=== PATIENT | male | born 1935 | race Caucasian/White ===

== ENCOUNTER → 2024-01-15 09:09 | Outpatient (REF) | payer MEDICARE, OTHER, SELFPAY ==
[2024-01-15 10:46] LABS: % Basophils 0.2 % (0-2); % Eosinophils 1.5 % (0-6); % Immature Granulocytes 0.2 % (0-0.5); % Lymphocytes 30.3 % (20.5-51.1); % Monocytes 8.8 % (1.7-9.3); Absolute Eosinophils 0.1 10^3/uL (0-0.7); Absolute Lymphocytes 1.4 10^3/uL (1.2-3.4); Absolute Monocytes 0.4 10^3/uL (0.1-0.6); Absolute Neutrophils 2.8 10^3/uL (1.4-6.5); Hemoglobin 13.3 g/dL (13.0-18.0); Mean Corp Hgb Conc. 33.3 g/dL (33.0-37.0); Mean Corpuscular Volume 96.4 fL (80.0-94.0); Mean Platelet Volume 10.6 fL (7.4-10.4); Nucleated Red Blood Cells % 0 % (-); Platelet Count 116 10^3/uL (130-400); Red Blood Cell Count 4.15 10^6/uL (4.70-6.10); Red Cell Dist. Width 12.8 % (11.5-14.5); White Blood Cell Count 4.8 10^3/uL (4.8-10.8)
[2024-01-15 10:51] LABS: Urine Albumin Negative (Neg - Trace); Urine Bilirubin Negative (Negative); Urine Character Clear (Clear); Urine Color Yellow; Urine Glucose Negative (Negative); Urine Ketone Negative (Negative); Urine Leukocyte Negative (Negative); Urine Nitrite Negative (Negative); Urine Occult Blood Negative (Negative); Urine Specific Gravity 1.015 (<1.030); Urine Urobilinogen Negative (Neg - 1+)
[2024-01-15 11:17] LABS: ALT (SGPT) 22 U/L (0-50); AST (SGOT) 32 U/L (17-59); Albumin 4.2 g/dl (3.5-5.0); Alkaline Phosphatase 108 U/L (38-126); Blood Urea Nitrogen 23 mg/dl (9-20); Calcium 9.6 mg/dl (8.4-10.2); Carbon Dioxide 29 mmol/L (22-30); Chloride 102 mmol/L (98-107); Glucose 100 mg/dl (70-99); HDL Cholesterol 61 mg/dl; LDL Cholesterol, Calculated 58 mg/dl; Potassium 4.3 mmol/L (3.5-5.1); Sodium 139 mmol/L (135-145); Total Bilirubin 0.9 mg/dl (0.2-1.3); Total Cholesterol 140 mg/dl (50-199); Total Protein 6.7 g/dl (6.3-8.2); Triglyceride 105 mg/dl (10-149); Very Low Density Lipoprotein 21 mg/dl (0-30); eGFR > 60.00
[2024-01-15 11:46] LABS: PSA, Total - Diagnostic < 0.06 ng/ml (0.0-4.0); TSH 0.86 uIU/ml (0.47-4.68)
[2024-01-15 13:55] LABS: Glycohemoglobin (HgbA1c) 5.5 % (4.0-5.6)
== END ==
LOC: REG 09:09
PROVIDERS: ATTENDING PHYSICIAN Internal Medicine
DX: I10 Essential (primary) hypertension (principal); R73.01 Impaired fasting glucose; E78.2 Mixed hyperlipidemia; Z85.46 Personal history of malignant neoplasm of prostate; M17.12 Unilateral primary osteoarthritis, left knee
CPT/HCPCS: 36415; 73564; 80053; 80061; 81003; 83036; 84153; 84443; 85025

== ENCOUNTER → 2024-03-23 10:54 | Outpatient (REF) | payer MEDICARE, OTHER, SELFPAY | LOC: DHCBC/DCA 10:54 | PROVIDERS: ATTENDING PHYSICIAN Internal Medicine Cardiovascular Disease; FAMILY PHYSICIAN Internal Medicine | DX: Z01.818 Encounter for other preprocedural examination (principal); I25.10 Atherosclerotic heart disease of native coronary artery without angina pectoris; Z98.61 Coronary angioplasty status; I45.10 Unspecified right bundle-branch block | CPT/HCPCS: 78452; 93017; A9500; J2785 ==

== ENCOUNTER 2024-04-15 07:36 | Inpatient (IN) | payer MEDICARE, OTHER, SELFPAY ==
--- NOTE | 2024-03-30 12:23 | CM ---
Patient is scheduled for an elective L TKR on 04/15/24. Spoke with patient prior to surgery via telephone. Introduced role of Orthopedic Navigator. Patient reports that he lives alone in a one floor condo. There are 15 steps to enter. He currently
functions independently. He has no DME and has never had VN services. PCP is Dr. Manuel Christensen.
Discussed orthopedic program and post surgical plans. Reviewed anticipated length of stay and that goal is for him to return home at discharge. Also reviewed outpatient PT. Patient is in agreement with tentative plan and will go directly to
outpatient PT at [facility]. He will be going to his daughter's home upon discharge. Daughter's home is two stories with one step to enter and a flight of steps to the second floor.
Patient will complete online education.
Plan: Orthopedic Navigator will remain available to assist with the care of patient and will reassess discharge needs after surgery.
[2024-04-06 14:52] LABS: Hematocrit 37.9 % (39.0-52.0); Mean Corp Hgb Conc. 34.3 g/dL (33.0-37.0); Mean Corpuscular Hgb 32.3 pg (27.0-31.0); Mean Corpuscular Volume 94.3 fL (80.0-94.0); Mean Platelet Volume 10.8 fL (7.4-10.4); Platelet Count 107 10^3/uL (130-400); Red Blood Cell Count 4.02 10^6/uL (4.70-6.10); Red Cell Dist. Width 13.1 % (11.5-14.5)
[2024-04-06 15:14] LABS: ALT (SGPT) 17 U/L (0-50); AST (SGOT) 26 U/L (17-59); Albumin 4.2 g/dl (3.5-5.0); Alkaline Phosphatase 95 U/L (38-126); Blood Urea Nitrogen 24 mg/dl (9-20); Calcium 9.5 mg/dl (8.4-10.2); Carbon Dioxide 26 mmol/L (22-30); Chloride 104 mmol/L (98-107); Glucose 104 mg/dl (70-99); Potassium 4.7 mmol/L (3.5-5.1); Sodium 138 mmol/L (135-145); Total Bilirubin 0.7 mg/dl (0.2-1.3); Total Protein 6.6 g/dl (6.3-8.2); eGFR > 60.00
[2024-04-07 11:12] LABS: Glycohemoglobin (HgbA1c) 5.4 % (4.0-5.6)
[2024-04-07 11:16] VITALS: BMI 26.5
[2024-04-10 11:30] VITALS: BMI 26.5
[2024-04-15] VITALS (19 sets, daily range): BP systolic 120–177; BP diastolic 55–78; PULSE 68; O2SAT 92
[2024-04-15] MEDS: CELEBREX 200 MG PO (07:52)
[2024-04-15] MEDS: NORMOSOL-R 1000 IV ×2 (07:53→13:42)
[2024-04-15] MEDS: TYLENOL 650 MG PO ×4 (07:53→23:02)
--- NOTE | 2024-04-15 10:43 | W.DS.TRANS ---
DC Summary - Time Study Technician
-
Discharge Instructions:
Sleep Apnea Risk Intermediate
Discharge Diagnosis/Procedures L TKA Dr. Smith 04/15/24
Diet As tolerated
Activity With Walker
Driving Restrictions No driving
Bathing Restrictions OK to Shower
Other Services PT
Instructions:
Stand-Alone Forms: Total Hip/Knee Replacement D/C
Changes to Home Medications: Yes
Discharge Medications:
DC Medications w/original date entered in [facility]
Lisinopril 10 mg PO DAILY 06/16/12
Metoprolol 12.5 mg PO HS 06/16/12
alprazolam 0.25 mg tablet 0.25 mg PO BID PRN anxiety 04/08/24
cholecalciferol (vitamin D3) 25 mcg (1,000 unit) capsule (Vitamin D3) 25 mcg PO DAILY 04/08/24
mupirocin 2 % topical ointment 1 applic topical BID 04/08/24
omega 4-pol-yzq-fish oil 1,200 mg (144 mg-216 mg) capsule (Fish Oil) 1 cap PO DAILY 04/08/24
timolol 0.5 % eye drops 1 drp ophthalmic (eye) DAILY 04/08/24
acetaminophen 325 mg capsule (Tylenol) 650 mg (2 x 325 mg) PO QID #2 caps 04/15/24
aspirin 325 mg tablet 325 mg PO DAILY blood clot prevention #1 tab 04/15/24
celecoxib 200 mg capsule 200 mg PO DAILY anti-inflammatory #14 caps 04/15/24
dexamethasone 4 mg tablet 4 mg PO BID inflammation #6 tabs 04/15/24
docusate sodium 100 mg capsule (Colace) 100 mg PO BID stool softner #1 cap 04/15/24
famotidine 20 mg tablet 20 mg PO HS GI prophylaxis #30 tabs 04/15/24
magnesium hydroxide 400 mg/5 mL oral suspension (Milk of Magnesia) 30 ml PO HS PRN Constipation #1 mL 04/15/24
ondansetron 4 mg disintegrating tablet 4 mg PO Q6H PRN n/v #20 tabs 04/15/24
oxycodone 5 mg tablet 5 mg PO Q6H PRN 1 tab moderate pain, 2 tabs severe pain #30 tabs 04/15/24
sennosides 8.6 mg tablet (Senokot) 17.2 mg (2 x 8.6 mg) PO BID laxative #2 tabs 04/15/24
Home Medication Changes
aspirin 325 mg tablet 325 mg PO DAILY blood clot prevention #1 tab 04/15/24�
celecoxib 200 mg capsule 200 mg PO DAILY anti-inflammatory #14 caps 04/15/24�
dexamethasone 4 mg tablet 4 mg PO BID inflammation #6 tabs 04/15/24�
famotidine 20 mg tablet 20 mg PO HS GI prophylaxis #30 tabs 04/15/24�
ondansetron 4 mg disintegrating tablet 4 mg PO Q6H PRN n/v #20 tabs 04/15/24�
oxycodone 5 mg tablet 5 mg PO Q6H PRN 1 tab moderate pain, 2 tabs severe pain #30 tabs 04/15/24�
Pending Results: No
--- NOTE | 2024-04-15 12:08 | SUR.PHASEI ---
pt c/o tightness across chest, VSS, no change seen in rhythm. TT Dr Peraza, EKG ORdered and done. Pt states it could be anxiety related, subsiding gradually, pt takes Xanax on regular basis, will give morning dose as ordered.
[2024-04-15] MEDS: XANAX 0.25 MG PO ×2 (12:57→20:50)
[2024-04-15] MEDS: ROXICODONE 5 MG PO (13:40)
--- NOTE | 2024-04-15 15:11 | PTCARENOTE ---
Pt arrived to 2S in bed. Full assessment completed. B/L LE neurovascular assessment WDL. L Knee primaseal with a scant amount of drainage noted. Telemetry applied. IVF infusing per order. Bed locked and in the lowest position, safety maintained.
Oriented to room and call antony.
[2024-04-15] MEDS: ASPIRIN 325 MG PO (17:56)
[2024-04-15] MEDS: ANCEF 5 IV (17:56)
[2024-04-15] MEDS: BACTROBAN 2% OINTMENT 1 APPLIC NASAL (20:48)
[2024-04-15] MEDS: SENOKOT 17.2 MG PO (20:49)
[2024-04-15] MEDS: DECADRON 4 MG PO (20:49)
[2024-04-15] MEDS: COLACE 100 MG PO (20:49)
[2024-04-15] MEDS: TORADOL 15 MG IV (20:50)
[2024-04-15] MEDS: NEURONTIN 300 MG PO (21:15)
[2024-04-15] MEDS: PEPCID 20 MG PO (21:15)
[2024-04-15] MEDS: LOPRESSOR 12.5 MG PO (21:18)
[2024-04-16] MEDS: ANCEF 5 IV (01:05)
[2024-04-16 03:01] VITALS: BP 134/64
[2024-04-16] MEDS: TYLENOL 650 MG PO ×3 (04:07→12:26)
[2024-04-16 07:30] VITALS: BP 108/60
[2024-04-16] MEDS: ASPIRIN 325 MG PO (08:58)
[2024-04-16] MEDS: DECADRON 4 MG PO (08:58)
[2024-04-16] MEDS: SENOKOT 17.2 MG PO (08:58)
[2024-04-16] MEDS: MOBIC 15 MG PO (08:59)
[2024-04-16] MEDS: COLACE 100 MG PO (08:59)
[2024-04-16] MEDS: XANAX 0.25 MG PO (08:59)
[2024-04-16] MEDS: BACTROBAN 2% OINTMENT 1 APPLIC NASAL (09:00)
[2024-04-16] MEDS: TORADOL 15 MG IV (09:00)
[2024-04-16 10:27] VITALS: BP 136/62
[2024-04-16 11:15] VITALS: BP 120/60
--- NOTE | 2024-04-16 12:31 | W.PN.ORTHO ---
Today's Communication / Plan
-
D/C
Assessment
.
Distal Motor Intact: Yes
Dressing:
Clean, dry and intact.
Plan
.
Surgery / Date: Srini Smith 04/15/24
DVT Prophylaxis: Aspirin
Activity:
Out of bed.
PT/OT
Discharge Plan: Home w/ Outpatient PT
Subjective
.
.:
Patient resting comfortably.
Vital Signs and Labs
.
Vital Signs and Labs:
Lab Results
04/06/24 12:50
04/06/24 12:50
Temp Pulse Resp BP Pulse Ox
97.3 F 52 18 120/60 96
04/16/24 11:15 04/16/24 11:15 04/16/24 11:15 04/16/24 11:15 04/16/24 11:15
Non-invasive Hgb result: 11.5
Physical Exam
-
HEENT: No pallor, cyanosis, or jaundice. Throat clear.
NECK: Supple. No JVD.
RESPIRATORY: Lungs clear to auscultation.
CVS: S1, S2 normal. RRR.� No murmur, rub or gallop.
ABDOMEN: Soft, non-tender. No distension. BS+/normal.
EXTREMITIES: strength equal, no calf pain with palpation
POLICY CHECKER: AOx3. No focal deficits. merchandise flow team member grossly intact
--- NOTE | 2024-04-17 08:02 | CM ---
met with patient and daughter at bedside.he is sp left tka pod#1.he is amb with a rw,seen by pt-he will attend op therapy.patient is stable to dc to daughter's home with no additional needs.patient signed ill letter.daughter to transport home.
== END 2024-04-16 15:20 | disposition home or self-care (01) | DRG 470 ==
LOC: 2 SOUTH 07:36
PROVIDERS: ADMITTING PHYSICIAN Orthopaedic Surgery; FAMILY PHYSICIAN Internal Medicine
PROC: 0SRD0J9 Replacement of Left Knee Joint with Synthetic Substitute, Cemented, Open Approach (ICD-10-PCS; 2024-04-15)
DX: M17.12 Unilateral primary osteoarthritis, left knee (principal); F13.20 Sedative, hypnotic or anxiolytic dependence, uncomplicated; J45.909 Unspecified asthma, uncomplicated; I10 Essential (primary) hypertension; E78.5 Hyperlipidemia, unspecified; I25.10 Atherosclerotic heart disease of native coronary artery without angina pectoris; Z95.5 Presence of coronary angioplasty implant and graft; Z79.82 Long term (current) use of aspirin; Z79.899 Other long term (current) drug therapy; Z85.46 Personal history of malignant neoplasm of prostate; Z85.828 Personal history of other malignant neoplasm of skin; Z90.49 Acquired absence of other specified parts of digestive tract; Z90.79 Acquired absence of other genital organ(s); Z88.0 Allergy status to penicillin; Z82.49 Family history of ischemic heart disease and other diseases of the circulatory system
CPT/HCPCS: 36415; 73560; 80053; 83036; 85027; 87070; 93005; 97110; 97116; 97162; 97166; 97530; 97535

== ENCOUNTER → 2025-07-09 08:53 | Outpatient (REF) | payer MEDICARE, OTHER, SELFPAY ==
[2025-07-09 09:33] LABS: Hematocrit 40.0 % (39.0-52.0); Hemoglobin 13.1 g/dL (13.0-18.0); Mean Corp Hgb Conc. 32.8 g/dL (33.0-37.0); Mean Corpuscular Volume 95.9 fL (80.0-94.0); Nucleated Red Blood Cells % 0 % (-); Platelet Count 104 10^3/uL (130-400); Red Cell Dist. Width 13.4 % (11.5-14.5)
[2025-07-09 10:32] LABS: ALT (SGPT) 22 U/L (0-50); AST (SGOT) 27 U/L (17-59); Albumin 4.1 g/dl (3.5-5.0); Alkaline Phosphatase 100 U/L (38-126); Blood Urea Nitrogen 22 mg/dl (9-20); Calcium 9.3 mg/dl (8.4-10.2); Carbon Dioxide 30 mmol/L (22-30); Chloride 104 mmol/L (98-107); Glucose 104 mg/dl (70-99); HDL Cholesterol 59 mg/dl; LDL Cholesterol, Calculated 66 mg/dl; Potassium 4.6 mmol/L (3.5-5.1); Sodium 140 mmol/L (135-145); Total Protein 6.5 g/dl (6.3-8.2); Very Low Density Lipoprotein 16 mg/dl (0-30); eGFR > 60.00
[2025-07-09 11:00] LABS: PSA, Total - Diagnostic < 0.06 ng/ml (0.0-4.0); TSH 0.84 uIU/ml (0.47-4.68)
[2025-07-09 11:28] LABS: Glycohemoglobin (HgbA1c) 5.3 % (4.0-5.9)
== END ==
LOC: REG 08:53
PROVIDERS: ATTENDING PHYSICIAN Internal Medicine
DX: I10 Essential (primary) hypertension (principal); E78.2 Mixed hyperlipidemia; R73.01 Impaired fasting glucose; C61 Malignant neoplasm of prostate; G47.00 Insomnia, unspecified
CPT/HCPCS: 36415; 80053; 80061; 83036; 84153; 84443; 85025